=== PATIENT | female | born 1975 | race Caucasian/White ===

== ENCOUNTER 2019-02-21 16:43 | Emergency (ER) | payer OTHER ==
[2019-02-21] MEDS ORDERED: NA CHLORIDE 0.9% 1,000 ML ONE (17:38)
--- NOTE | 2019-02-21 17:59 | RAD REPORT ---
EXAM DESCRIPTION: CT - Head Brain Wo Cont - 02/21/2019 5:38 pm CLINICAL HISTORY: Dizziness COMPARISON: None. TECHNIQUE: Computed axial tomography of the head was obtained. IV contrast was not requested. All CT scans are performed using dose optimization technique as appropriate and may include automated exposure control or mA/KV adjustment according to patient size. FINDINGS: An intracranial bleed is not seen . The ventricles are normal in caliber. No extra-axial fluid collection is noted. Fluid within the sinuses/ mastoids is not seen. IMPRESSION: No acute intracranial abnormality is seen. If patient's symptoms persist MRI of the bra in would be recommended.
[2019-02-21 18:05] LABS: Absolute Lymphocytes (CBC) 2.3 K/uL (0.7-4.9); Basophils % 0.8 % (0-1.3); Hematocrit 40.2 % (36.0-45.0); Lymphocytes % 29.3 % (15.3-44.8); MPV 8.4 fL (7.6-11.3); RBC Red Blood Cell Count 4.25 M/uL (3.86-4.86)
--- NOTE | 2019-02-21 18:14 | RAD REPORT ---
EXAM DESCRIPTION: Deandre Single View02/21/2019 5:51 pm CLINICAL HISTORY: cough COMPARISON: none FINDINGS: Lungs hyperaerated The lungs appear clear of acute infiltrate. The heart is normal size Apical pleural thickening IMPRESSION: No acute abnormalities displayed
[2019-02-21 18:19] LABS: Urine Bacteria 20-50 /HPF (<20); Urine Culture Reflex Order REFLEXED; Urine RBC <5 /HPF (NONE SEEN)
[2019-02-21 18:30] LABS: Albumin 3.6 g/dL (3.4-5.0); Bilirubin Direct 0.1 mg/dL (0-0.2); Bilirubin Total 0.4 mg/dL (0.2-1.0); Potassium 3.5 mmol/L (3.5-5.1); Protein, Total 7.5 g/dL (6.4-8.2)
[2019-02-21 18:43] LABS: Thyroid Stimulating Hormone 5.29 uIU/mL (0.360-3.740)
--- NOTE | 2019-02-21 18:49 | ER ---
Nurse's Notes [facility] Name: Henry Bassett Age: 43 yrs Sex: Female : 1975 Arrival Date: 02/21/2019 Time: 16:52 Bed 14 Private MD: Diagnosis: Urinary tract infection, site not specified;Subclinical Hypothyroidism Presentation: 02/21 16:58 Presenting complaint: Patient states: "We've been on a cruise, just got off 2 weeks aj1 ago. The next day I started feeling bad. That I went to the ER in [facility], they told me I had a viral infection and told me to hydrate and rest and let it run its course. I started to feel better Wednesday, and then yesterday it started all over again" Patient reports dizziness, states "I feel like I'm still on the boat, and I feel real weak, and I get numbness in my arms" States that she has an appointment with her PHCP this week on . Reports that she is having vision issues as well that "things get blurry and I see little gómez dots and if I move too fast its like everything is going in slow motion". Transition of care: patient was not received from another setting of care. Risk Assessment: Do you want to hurt yourself or someone else? Patient reports no desire to harm self or others. Initial Sepsis Screen: Does the patient meet any 2 criteria? No. Patient's initial sepsis screen is negative. Does the patient have a suspected source of infection? No. Patient's initial sepsis screen is negative. Care prior to arrival: None. 16:58 Method Of Arrival: Ambulatory aj1 16:58 Acuity: MAXIMILIANO 3 aj1 17:00 Onset of symptoms is unknown. Note Pt. reports symptoms started a couple weeks ago rb1 after she returned from a cruise. Triage Assessment: 17:00 General: Appears in no apparent distress. comfortable, Behavior is calm, cooperative. aj1 Pain: Denies pain. Neuro: Level of Consciousness is awake, alert, obeys commands, Oriented to person, place, time, situation, Moves all extremities. Full function Gait is steady, Speech is normal, Facial symmetry appears normal, Reports blurred vision dizziness. Cardiovascular: Patient's skin is warm and dry. Respiratory: Airway is patent Respiratory effort is even, unlabored, Respiratory pattern is regular, symmetrical. 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 - Social history:: Smoking status: Patient uses tobacco products, smokes one pack cigarettes per day. - Ebola Screening: : Patient denies travel to an Ebola-affected area in the 21 days before illness onset. - Family history:: not pertinent. - Hospitalizations: : No recent hospitalization is reported. Screenin:05 Abuse screen: Denies threats or abuse. Nutritional screening: No deficits noted. rb1 Tuberculosis screening: No symptoms or risk factors identified. Fall Risk None identified. Assessment: 17:05 General: Appears in no apparent distress. comfortable, Behavior is calm, cooperative, rb1 Denies fever. Pain: Denies pain. Neuro: Level of Consciousness is awake, alert, obeys commands, Oriented to person, place, time, situation, Reports dizziness, since Wednesday Reports seeing gómez dots. Cardiovascular: Capillary refill < 3 seconds is brisk in bilateral fingers. Respiratory: Airway is patent Respiratory effort is even, unlabored, Respiratory pattern is regular, symmetrical. GI: No signs and/or symptoms were reported involving the gastrointestinal system. : Reports urinary frequency. Derm: Skin is pink, warm \\T\\ dry. Musculoskeletal: Range of motion: intact in all extremities. 18:00 Reassessment: Patient appears in no apparent distress at this time. No changes from rb1 previously documented assessment. Vital Signs: 17:00 BP 126 / 79; Pulse 66; Resp 18; Temp 98.5; Pulse Ox 98% on R/A; Weight 63.5 kg (R); aj1 Height 5 ft. 9 in. (175.26 cm) (R); Pain 0/10; 18:00 BP 111 / 83; Pulse 52; Resp 16; Pulse Ox 99% on R/A; Pain 0/10; rb1 19:00 BP 120 / 81; Pulse 67; Resp 16; Temp 98.6(O); Pulse Ox 99% on R/A; Pain 0/10; jb4 17:00 Body Mass Index 20.67 (63.50 kg, 175.26 cm) aj1 ED Course: 16:52 Patient arrived in ED. mr 17:00 Triage completed. aj1 17:00 Arm band placed on Patient placed in an exam room. aj1 17:04 Sylvester Mendoza MD is Attending Physician. rn 17:05 Patient has correct armband on for positive identification. Bed in low position. Call rb1 light in reach. Side rails up X 1. Pulse ox on. NIBP on. Warm blanket given. 17:31 Kimberley Taylor, RN is Primary Nurse. rb1 17:38 CT completed. Patient tolerated procedure well. Patient moved to CT. Patient moved back ri from CT. 17:39 CT Head Brain wo Cont In Process Unspecified. EDMS 17:39 EKG done, by physical therapy technician. reviewed by Sylvester Mendoza MD. sm3 17:52 XRAY Chest (1 view) In Process Unspecified. EDMS 17:57 Initial lab(s) drawn, by ny, sent to lab. Inserted saline lock: 20 gauge in left tm3 antecubital area, using aseptic technique. 19:10 No provider procedures requiring assistance completed. IV discontinued, intact, rb1 bleeding controlled, No redness/swelling at site. Pressure dressing applied. Administered Medications: 18:00 Drug: NS 0.9% 1000 ml Route: IV; Rate: 1000 ml; Site: left antecubital; rb1 19:00 Follow up: IV Status: Completed infusion jb4 18:55 Drug: Macrobid 100 mg Route: PO; jb4 19:11 Follow up: Response: Medication administered at discharge. rb1 Outcome: 18:48 Discharge ordered by . rn 19:10 Discharged to home ambulatory, with family. rb1 19:10 Condition: stable 19:10 Discharge instructions given to patient, Instructed on discharge instructions, follow up and referral plans. medication usage, Demonstrated understanding of instructions, follow-up care, medications, Prescriptions given X 1. 19:10 Patient left the ED. rb1 Signatures: Dispatcher [employer] EDMS Britt Diaz, RN RN aj1 nAgel [email or web address] Sakshi Ocasio mr Sylvester Mendoza MD MD rn Barber, Rebecca, RN RN rb1 Zev Gonzáles RN RN jb4 Chucky, Delgado nj Garza, Mellisa sm3
--- NOTE | 2019-02-21 18:49 | EDPHYS ---
Physician Documentation [facility] Name: Henry Crefrancesca Age: 43 yrs Sex: Female : 1975 Arrival Date: 02/21/2019 Time: 16:52 Bed 14 Private MD: ED Physician Sylvester Mendoza HPI: 02/21 18:05 This 43 yrs old Female presents to ER via Ambulatory with complaints of rn Dizziness, Weakness. 18:05 The patient presents with dizziness, feeling faint, generalized weakness, rn lightheadedness. Onset: The symptoms/episode began/occurred 2 week(s) ago. Modifying factors: The symptoms are alleviated by lying down, the symptoms are aggravated by standing up. Severity of symptoms: At their worst the symptoms were moderate in the emergency department the symptoms have improved. The patient has not experienced similar symptoms in the past. The patient has been recently seen by a physician:. Reports got back from cruise 2 weeks ago, felt bad afterwards with dizziness, flushing, fatigue, weakness. + dry cough but also long time smoker. Seen at [facility] at that time, ct head normal and bloodwork and UA negative, told possible viral syndrome and sent home. Reports felt a little better but now symptoms returning. NO fever. No chest pain/sob/abd pain/vomiting/diarrhea/rash. No hemoptysis. No focal neurological complaints. . 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 - Social history:: Smoking status: Patient uses tobacco products, smokes one pack cigarettes per day. - Ebola Screening: : Patient denies travel to an Ebola-affected area in the 21 days before illness onset. - Family history:: not pertinent. - Hospitalizations: : No recent hospitalization is reported. ROS: 18:05 Constitutional: Negative for fever, chills, and weight loss, Eyes: Negative for injury, rn pain, redness, and discharge, Neck: Negative for injury, pain, and swelling, Cardiovascular: Negative for chest pain, palpitations, and edema, Respiratory: Negative for shortness of breath, wheezing, and pleuritic chest pain, Abdomen/GI: Negative for abdominal pain, nausea, vomiting, diarrhea, and constipation, Back: Negative for injury and pain, : Negative for injury, bleeding, discharge, and swelling, + increased frequency MS/Extremity: Negative for injury and deformity, Skin: Negative for injury, rash, and discoloration, Neuro: Negative for headache, numbness, tingling, and seizure. Exam: 18:05 Constitutional: This is a well developed, well nourished patient who is awake, alert, rn and in no acute distress. Head/Face: Normocephalic, atraumatic. Eyes: Pupils equal round and reactive to light, extra-ocular motions intact. Lids and lashes normal. Conjunctiva and sclera are non-icteric and not injected. Cornea within normal limits. Periorbital areas with no swelling, redness, or edema. ENT: MMM Neck: Trachea midline, no thyromegaly or masses palpated, and no cervical lymphadenopathy. Supple, full range of motion without nuchal rigidity, or vertebral point tenderness. No Meningismus. Cardiovascular: Regular rate and rhythm. No pulse deficits. Respiratory: Lungs have equal breath sounds bilaterally. No increased work of breathing, no retractions or nasal flaring. Speaking full sentences and no dyspnea with ambulation. Abdomen/GI: soft, non-tender Skin: Warm, dry MS/ Extremity: Pulses equal, no cyanosis. Neurovascular intact. Full, normal range of motion. Equal circumference. Neuro: Awake and alert, GCS 15, oriented to person, place, time, and situation. Cranial nerves II-XII grossly intact. Motor strength 5/5 in all extremities. Sensory grossly intact. Cerebellar exam normal. Normal gait. Joking and ambulatory from bathroom without ataxia or distress. 18:26 ECG was reviewed by the Attending Physician. rn Vital Signs: 17:00 BP 126 / 79; Pulse 66; Resp 18; Temp 98.5; Pulse Ox 98% on R/A; Weight 63.5 kg (R); aj1 Height 5 ft. 9 in. (175.26 cm) (R); Pain 0/10; 18:00 BP 111 / 83; Pulse 52; Resp 16; Pulse Ox 99% on R/A; Pain 0/10; rb1 19:00 BP 120 / 81; Pulse 67; Resp 16; Temp 98.6(O); Pulse Ox 99% on R/A; Pain 0/10; jb4 17:00 Body Mass Index 20.67 (63.50 kg, 175.26 cm) aj1 MDM: 17:04 Patient medically screened. rn 18:24 Differential diagnosis: generalized weakness, hyperventilation, hypovolemia, idiopathic rn dizziness, vertigo. Data reviewed: vital signs, nurses notes, radiologic studies, CT scan, plain films. Test interpretation: by ED physician or midlevel provider: plain radiologic studies, cxr without acute infiltrate. Counseling: I had a detailed discussion with the patient and/or guardian regarding: smoking cessation. 18:26 ED course: Meets PERC, no d-dimer or CT chest ordered. . rn 18:33 ED course: Has f/u appt on . . rn 02/21 17:21 Order name: CBC with Diff; Complete Time: 18:19 rn 02/21 17:21 Order name: Basic Metabolic Panel; Complete Time: 18:47 rn 02/21 17:21 Order name: Urine Microscopic Only; Complete Time: 18:30 rn 02/21 17:21 Order name: [facility] Screen Profile; Complete Time: 18:30 rn 02/21 17:21 Order name: TSH; Complete Time: 18:47 rn 02/21 17:21 Order name: LFT's; Complete Time: 18:47 rn 02/21 17:21 Order name: CT Head Brain wo Cont; Complete Time: 18:19 rn 02/21 17:21 Order name: XRAY Chest (1 view); Complete Time: 18:20 rn 02/21 17:21 Order name: T4 Free; Complete Time: 18:47 rn 02/21 17:40 Order name: Urine Dipstick--Ancillary (enter results) 02/21 17:40 Order name: Urine --Ancillary (enter results) 02/21 18:22 Order name: Urine Culture [facility] 02/21 17:21 Order name: IV Start; Complete Time: 19:07 rn 02/21 17:21 Order name: Urine Test (obtain specimen); Complete Time: 19:00 rn 02/21 17:21 Order name: Urine Dipstick-Ancillary (obtain specimen); Complete Time: 19:00 rn 02/21 17:21 Order name: EKG; Complete Time: 17:22 rn 02/21 17:21 Order name: EKG - Nurse/Tech; Complete Time: 18:51 rn EC: Rate is 66 beats/min. Rhythm is regular. QRS [place] is Normal. MD interval is normal. QRS rn interval is normal. QT interval is normal. No Q waves. T waves are Normal. No ST changes noted. Clinical impression: NSR w/ Non-specific ST/T Changes. Interpreted by me. Reviewed by me. Administered Medications: 18:00 Drug: NS 0.9% 1000 ml Route: IV; Rate: 1000 ml; Site: left antecubital; rb1 19:00 Follow up: IV Status: Completed infusion jb4 18:55 Drug: Macrobid 100 mg Route: PO; jb4 19:11 Follow up: Response: Medication administered at discharge. rb1 Disposition: 02/21/19 18:48 Discharged to Home. Impression: Urinary tract infection, site not specified, Subclinical Hypothyroidism. - Condition is Stable. - Discharge Instructions: Urinary Tract Infection, Adult. - Prescriptions for Macrobid 100 mg Oral Capsule - take 1 capsule by ORAL route every 12 hours for 10 days; 20 capsule. - Medication Reconciliation Form, Thank You Letter, Antibiotic Education, Prescription Opioid Use form. - Follow up: Private Physician; When: As needed; Reason: Recheck today's complaints, Re-evaluation by your physician. - Problem is an ongoing problem. - Symptoms have improved. Signatures: Dispatcher [employer] EDMS Birtt Diaz RN RN aj1 Sylvester Mendoza MD MD rn Barber, Rebecca, RN RN rb1 Zev Gonzáles RN RN jb4 Corrections: (The following items were deleted from the chart) 18:24 18:05 Constitutional: This is a well developed, well nourished patient who is awake, rn alert, and in no acute distress. Head/Face: Normocephalic, atraumatic. Eyes: Pupils equal round and reactive to light, extra-ocular motions intact. Lids and lashes normal. Conjunctiva and sclera are non-icteric and not injected. Cornea within normal limits. Periorbital areas with no swelling, redness, or edema. ENT: MMM Neck: Trachea midline, no thyromegaly or masses palpated, and no cervical lymphadenopathy. Supple, full range of motion without nuchal rigidity, or vertebral point tenderness. No Meningismus. Cardiovascular: Regular rate and rhythm. No pulse deficits. Respiratory: Lungs have equal breath sounds bilaterally. No increased work of breathing, no retractions or nasal flaring. Speaking full sentences and no dyspnea with ambulation. Abdomen/GI: soft, non-tender Skin: Warm, dry MS/ Extremity: Pulses equal, no cyanosis. Neurovascular intact. Full, normal range of motion. Equal circumference. Neuro: Awake and alert, GCS 15, oriented to person, place, time, and situation. Cranial nerves II-XII grossly intact. Motor strength 5/5 in all extremities. Sensory grossly intact. Cerebellar exam normal. Normal gait. rn 19:10 18:48 02/21/2019 18:48 Discharged to Home. Impression: Urinary tract infection, site rb1 not specified; Subclinical Hypothyroidism. Condition is Stable. Discharge Instructions: Urinary Tract Infection, Adult. Prescriptions for Macrobid 100 mg Oral Capsule - take 1 capsule by ORAL route every 12 hours for 10 days; 20 capsule. and Forms are Medication Reconciliation Form, Thank You Letter, Antibiotic Education, Prescription Opioid Use. Follow up: Private Physician; When: As needed; Reason: Recheck today's complaints, Re-evaluation by your physician. Problem is an ongoing problem. Symptoms have improved. rn
[2019-02-21] MEDS ORDERED: NITROFURAN MACRO 100 MG CAP PO ONE (18:58)
[2019-02-21 19:44] VITALS: O2SAT 99
[2019-02-21 19:45] VITALS: BP 120/81; TEMP 98.6
[2019-02-21 20:25] LABS: Urine Blood TRACE (NEG); Urine Glucose NEGATIVE (NEG); Urine Protein NEGATIVE (NEG); Urine pH 5.5 (5.0-7.0)
--- NOTE | 2019-02-22 06:45 | EKG ---
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
[2019-02-22] MEDS ORDERED: MIDAZOLAM HCL 2 MG/2 ML INJ ONE (16:18)
[2019-02-22] MEDS ORDERED: LORazepam 2 MG/ML VIAL ONE (16:18)
[2019-02-22] MEDS ORDERED: RSI MEDICATION KIT IV ONE (16:19)
[2019-02-22] MEDS ORDERED: NA CHLORIDE 0.9% 100 ML IV ONE (16:22)
[2019-02-22] MEDS ORDERED: FOSPHENYTOIN PE 500 MG/10 ML VIAL ONE (16:23)
== END 2019-02-21 19:10 | disposition home or self-care (01) ==
LOC: ER 16:43
DX: N39.0 Urinary tract infection, site not specified (principal); E02 Subclinical iodine-deficiency hypothyroidism; J44.9 Chronic obstructive pulmonary disease, unspecified; F17.210 Nicotine dependence, cigarettes, uncomplicated
CPT/HCPCS: 93005; 87088; 85025; 87086; 80048; 36415; 86308; 81025; 80076; 84443; 84439; 70450; 71045; 96360; 99284; J7030; 81003; 81015